=== PATIENT | female | born 1980 | race Caucasian/White ===

== ENCOUNTER 2016-11-20 00:10 | Emergency (ER) | payer BC ==
[2016-11-20 00:17] VITALS: BMI 23.4
[2016-11-20 00:20] VITALS: RESP 16; TEMP 98.1
--- NOTE | 2016-11-20 00:45 | ED PDOC ---
Arrival/HPI - General Chief Complaint: High Blood Pressure Time Seen by Provider: 11/20/16 00:13 Historian: Patient - History of Present Illness Narrative History of Present Illness (Text): 11/20/16 00:41 36 y/o female, pmh including htn, nkda, biba c/o high blood pressure. Pt. stated that she has been taking and stopping the amlodipine 2.5mg po qd since summer, prior to that she was on hydrochlorthiazide 25mg po qd which it was too strong that's causing her BP down to 100s/60s. Pt. selfly stopped the amlodipine 2.5mg po qd and started to take hydrochlorthiazide 25mg po qd about 4 days ago because she is almost out of amlodipine. Pt. never had the medications adjusted or titrated. Pt. stated that she was checking the BP 2-3 times tonight and went up higher each time which she became panic and having frontal headache but resolved now. Pt. stated that she has no numbness or tingling, no palpitation, no night sweat, no dizziness, no change in vision, no diarrhea, no abdominal pain, no slurred speech, no other medical or psychological complaints. Past Medical History - Provider Review Nursing Documentation Reviewed: Yes - Travel History If Yes, travel location?: [place] - Reproductive Menopause: No - Cardiac Hx Cardiac Disorders: Yes Hx Hypertension: Yes - Pulmonary Hx Respiratory Disorders: No - Neurological Hx Neurological Disorder: No - HEENT Hx HEENT Disorder: No - Renal Hx Renal Disorder: No - Endocrine/Metabolic Hx Endocrine Disorders: No - Hematological/Oncological Hx Blood Disorders: No - Integumentary Hx Dermatological Disorder: No - Musculoskeletal/Rheumatological Hx Musculoskeletal Disorders: No - Gastrointestinal Hx Gastrointestinal Disorders: No - Genitourinary/Gynecological Hx Genitourinary Disorders: No - Psychiatric Hx Psychophysiologic Disorder: No Hx Substance Use: No - Surgical History Hx Section: Yes (X2) Family/Social History - Physician Review Nursing Documentation Reviewed: Yes Family/Social History: Unknown Family HX Smoking Status: Never Smoked Hx Alcohol Use: Yes Frequency of alcohol use: Socially Hx Substance Use: No Allergies/Home Meds Allergies/Adverse Reactions: Allergies No Known Allergies Allergy (Verified 11/20/16 00:17) Home Medications: Home Meds Medication Instructions Recorded Confirmed amLODIPine [Norvasc] 2.5 mg PO DAILY 11/20/16 11/20/16 hydroCHLOROthiazide [Hydrodiuril] 25 mg PO DAILY 11/20/16 11/20/16 Review of Systems - Review of Systems Constitutional: absent: Fatigue, Fevers Eyes: absent: Vision Changes ENT: absent: Hearing Changes Respiratory: absent: SOB, Cough Cardiovascular: absent: Chest Pain Gastrointestinal: absent: Abdominal Pain, Nausea, Vomiting Musculoskeletal: absent: Arthralgias, Back Pain Skin: absent: Rash, Pruritis Neurological: absent: Headache, Dizziness, Focal Weakness, Gait Changes, Speech Changes, Facial Droop, Disequilibrium, Seizure Physical Exam Vital Signs Temp Pulse Pulse Resp BP Pulse Ox 11/20/16 02:19 16 98 11/20/16 01:41 88 16 157/92 H 98 11/20/16 01:11 80 16 163/109 H 100 11/20/16 01:10 80 163/109 H 11/20/16 00:25 80 11/20/16 00:19 98.1 F 89 16 177/115 H 100 Temperature: Afebrile Blood Pressure: Hypertensive Pulse: Regular Respiratory Rate: Normal Appearance: Positive for: Well-Appearing, Non-Toxic, Comfortable Pain Distress: None Mental Status: Positive for: Alert and Oriented X 3 - Systems Exam Head: Present: Atraumatic, Normocephalic Pupils: Present: PERRL Extroacular Muscles: Present: EOMI Conjunctiva: Present: Normal Mouth: Present: Moist Mucous Membranes Neck: Present: Normal Range of Motion Respiratory/Chest: Present: Clear to Auscultation, Good Air Exchange. No: Respiratory Distress, Accessory Muscle Use, Wheezes, Decreased Breath Sounds, Rales, Retracting, Rhonchi, Tachypneic, Tender to Palpation Cardiovascular: Present: Regular Rate and Rhythm, Normal S1, S2. No: Murmurs Abdomen: Present: Normal Bowel Sounds. No: Tenderness, Distention, Peritoneal Signs Back: Present: Normal Inspection Upper Extremity: Present: Normal Inspection. No: Cyanosis, Edema Lower Extremity: Present: Normal Inspection. No: Edema Neurological: Present: GCS=15, CN II-XII Intact, Speech Normal, Motor Func Grossly Intact, Gait Normal, Memory Normal, Other (no drift, normal finger to nose test, normal heel to dee test) Skin: Present: Warm, Dry, Normal Color. No: Rashes Psychiatric: Present: Alert, Oriented x 3, Normal Insight, Normal Concentration Medical Decision Making ED Course and Treatment: 11/20/16 00:46 -amlodipine 5mg po ordered. -labs/thyroid panel -no cardiopulmonary or neurological complaints, no emergent indication of ekg or radiology studies indicated at this time. -observe and reassess 11/20/16 01:43 -BP decreased, pt. is non-symptomatic, will discharge home. -Thyroid panel show elevated TSH but normal T4, clinically that's consider as hypothyroidism but the patient is asymptomatic with no signs of symptoms of the hypothyroidism. I advised her to outpatient follow up with her own pmd for further radiology and thyroid panel follow up. Pt. stated that she has been told that her thyroid level has been abnormal in the past by her own pmd. -Labs are non-significant except potassium 3.4 which likely resulted from selfly taking hydrochlorthiazide 25mg po qd at home. I advised the patient to stopped. -Discharge home with amlodipine as you previous been taking, decrease salt intake, avoid caffeine product, follow up with your own pmd within 2 days for medication adjustment, return to the ER for any new or worsening signs or symptoms. - Lab Interpretations Lab Results: 11/20/16 00:52 11/20/16 00:52 Lab Results 11/20/16 00:52: WBC 10.7, RBC 5.02, Hgb 14.2, Hct 41.2, MCV 82.1, MCH 28.3, MCHC 34.5, RDW 12.9, Plt Count 195, MPV 10.6, Gran % 67.5, Lymph % (Auto) 25.7, Ritchie % (Auto) 5.7, Eos % (Auto) 0.5 L, Baso % (Auto) 0.6, Gran # 7.22 H, Lymph # 2.8, Ritchie # 0.6, Eos # 0.1, Baso # 0.06, Sodium 140, Potassium 3.4 L, Chloride 97 L, Carbon Dioxide 29, Anion Gap 17, BUN 15, Creatinine 0.7, Est GFR ( Amer) > 60, Est GFR (Non-Af Amer) > 60, Random Glucose 119 H, Calcium 9.9, Total Bilirubin 0.5, AST 30, ALT 15, Alkaline Phosphatase 44, Total Protein 8.5 H, Albumin 4.6, Globulin 3.9, Albumin/Globulin Ratio 1.2, Free T4 0.95, TSH 3rd Generation 8.55 H I have reviewed the lab results: Yes Interpretation: Abnormal lab values (K+3.4, elevated TSH with normal T4) - Medication Orders Current Medication Orders: Discontinued Medications Amlodipine Besylate (Norvasc) 5 mg PO STAT STA Stop: 11/20/16 00:41 Last Admin: 11/20/16 01:10 Dose: 5 MG MAR Pulse and Blood Pressure Document 11/20/16 01:10 [email or web address] (Rec: 11/20/16 01:10 [email or web address] [id number]) Pulse Pulse Rate (60-90) 80 Blood Pressure Blood Pressure (100/60-150/90) 163/109 Potassium Chloride (K-Dur 20 Meq Er Tab) 20 meq PO STAT STA Stop: 11/20/16 01:44 Last Admin: 11/20/16 02:12 Dose: 20 MEQ - PA / P[employer]MAN / Resident Statement MD/DO has reviewed & agrees with the documentation as recorded. Disposition/Present on Arrival - Present on Arrival Any Indicators Present on Arrival: No History of DVT/PE: No History of Uncontrolled Diabetes: No Urinary Catheter: No History of Decub. Ulcer: No History Surgical Site Infection Following: None - Disposition Have Diagnosis and Disposition been Completed?: Yes Diagnosis: HTN (hypertension) with goal to be determined, Medication refill, Abnormal finding on thyroid function test Disposition: HOME/ ROUTINE Disposition Time: 01:37 Patient Plan: Discharge Condition: IMPROVED Discharge Instructions (ExitCare): Chronic Hypertension (ED) Print Language: UPPER SORBIAN Additional Instructions: -Discharge home with amlodipine as you previous been taking, decrease salt intake, avoid caffeine product, follow up with your own pmd within 2 days for medication adjustment, return to the ER for any new or worsening signs or symptoms. Prescriptions: amLODIPine [Norvasc] 2.5 mg PO DAILY #30 tab Referrals: [facility] at [facility] [place] [Outside] - Follow up with primary Forms: WORK NOTE
[2016-11-20 01:08] LABS: ADD MANUAL DIFF? NO
[2016-11-20 01:20] LABS: ALB/GLOB RATIO 1.2 (1.1-1.8); ALKALINE PHOSPHATASE 44 U/L (38-133); ALT/SGPT 15 U/L (7-56); AST/SGOT 30 U/L (15-39); BILIRUBIN,TOTAL 0.5 mg/dL (0.2-1.3); BLOOD UREA NITROGEN 15 mg/dL (7-21); CALCIUM 9.9 mg/dL (8.4-10.5); CARBON DIOXIDE 29 mmol/L (21-33); CHLORIDE 97 mmol/L (98-107); GFR AFRICAN-AMERICAN > 60; GLUCOSE,RANDOM 119 mg/dL (70-110); POTASSIUM 3.4 mmol/L (3.6-5.0); SODIUM 140 mmol/L (132-148); TOTAL PROTEIN 8.5 g/dL (5.8-8.3)
[2016-11-20 01:25] LABS: BASO # 0.06 K/mm3 (0.0-2.0); BASO % 0.6 % (0.0-3.0); EOS # 0.1 (0.0-0.7); EOS % 0.5 % (1.5-5.0); GRAN # 7.22 (1.4-6.5); GRAN % 67.5 % (50.0-68.0); HEMATOCRIT 41.2 % (36.0-48.0); LYMPH # 2.8 (1.2-3.4); LYMPH % 25.7 % (22.0-35.0); MEAN CELL VOLUME 82.1 fL (80.0-105.0); MEAN CORPUSCULAR HEMOGLOBIN 28.3 pg (25.0-35.0); MEAN CORPUSCULAR HGB CONC 34.5 g/dl (31.0-37.0); MEAN PLATELET VOLUME 10.6 fl (7.0-11.0); MONO # 0.6 (0.1-0.6); MONO % 5.7 % (1.0-6.0); PLATELET COUNT 195 10^3/uL (120.0-450.0); RED CELL DISTRIBUTION WIDTH 12.9 % (11.5-14.5); WHITE BLOOD COUNT 10.7 10^3/ul (4.5-11.0)
[2016-11-20 01:36] LABS: FREE T4 0.95 ng/dL (0.78-2.19)
[2016-11-20 01:42] VITALS: BP 157/92; PULSE 88; O2SAT 98
[2016-11-20] MEDS ORDERED: Potassium Chloride 20 mEq ER Tab PO STA (01:43)
[2016-11-20 01:50] LABS: THYROID STIMULATING HORMONE 8.55 mIU/mL (0.46-4.68)
== END 2016-11-20 02:20 | disposition home or self-care (01) ==
LOC: ED 00:10
DX: I10 Essential (primary) hypertension (principal); Z76.0 Encounter for issue of repeat prescription